=== PATIENT | female | born 1995 | race Caucasian/White ===

== ENCOUNTER → 2020-10-30 14:15 | Outpatient (CLI) | payer OTHER, SELFPAY ==
[2020-10-30 17:41] LABS: COVID19 -Nasal RAPID Negative (Negative)
== END ==
PROVIDERS: PCP Physician Assistant Medical; Visit Provider Nurse Practitioner
DX: Z01.812 Encounter for preprocedural laboratory examination (principal); Z20.822 Contact with and (suspected) exposure to COVID-19
CPT/HCPCS: 87635

== ENCOUNTER 2020-11-02 09:39 | Day surgery (SDC) | payer OTHER, SELFPAY ==
[2020-10-23 14:22] VITALS: BMI 23.1
[2020-11-02 09:58] VITALS: BMI 23.1
[2020-11-02] MEDS: LACTATED RINGERS 1,000 ML 42 ML IV (10:03)
--- NOTE | 2020-11-02 10:34 | PM.PREOP ---
Pre-operative Note COVID-19 COVID-19 status: Negative Interval Note History & Physical reviewed/Exam performed by Physician: Yes Changes to H&P: No
--- NOTE | 2020-11-02 10:36 | PM.HP.1 ---
History of Present Illness History of Present Illness Date Patient Seen: 11/02/20 Time Patient Seen: 10:36 Chief complaint: Chronic tonsillitis Narrative: 25-year-old female last seen in clinic 09/20/2020 for recurrent acute tonsillitis, chronic tonsillitis with stones, and throat pain, presents for tonsillectomy and possible adenoidectomy. No interval severe episodes but throat typically sore by the end of the day. No recent cough, cold, or fever. Elects to proceed with surgery. Patient History Medical History Anxiety Chronic tonsillitis Environmental and seasonal allergies Headache Sore throat Tonsil stone Surgical History Hx of umbilical hernia repair Family & Social History Social History: household members spouse Tobacco & Substance use: Smoking Status Never smoker alcohol intake current alcohol intake frequency 0-2 drinks per day Substance Use Type does not use Meds Home Medications and Allergies Home Medications Medication Instructions Recorded Confirmed Type topiramate 25 mg tablet (Topamax) 75 mg PO DAILY #0 12/14/16 11/02/20 History clonidine HCl 0.2 mg tablet 0.2 mg PO BEDTIME 10/23/20 11/02/20 History ethynodiol diacetate-ethinyl 1 tab PO DAILY 10/23/20 11/02/20 History estradiol 1 mg-50 mcg tablet (Kelnor) etonogestrel 68 mg subdermal 68 mg SUBDERMAL CONT 10/23/20 11/02/20 History implant (Nexplanon) methylphenidate HCl 36 mg 36 mg PO DAILY 10/23/20 11/02/20 History tablet,extended release 24 hr (Concerta) propranolol 20 mg tablet 20 mg PO DAILY 10/23/20 11/02/20 History Allergies Allergy/AdvReac Type Severity Reaction Status Date / Time latex [LATEX] Allergy Intermediate Verified 11/02/20 09:48 Review of Systems Review of Systems Narrative: Negative except as listed in HPI Exam Narrative Exam Narrative: Well-developed well-nourished female in no acute distress. Heart regular rate and rhythm without murmur, lungs clear to auscultation bilaterally Assessment & Plan Assessment & Plan narrative: Assessment: Recurrent acute tonsillitis, chronic tonsillitis, tonsil stones, and throat pain Plan: Following discussion of the material risks benefits complications and alternatives, she elected to proceed with tonsillectomy and possible adenoidectomy as outpatient.
--- NOTE | 2020-11-02 10:39 | P.OP_ITS ---
Operative Date/Time/Diagnoses Date of procedure: 11/02/20 Time of procedure: 11:23 Pre-op diagnosis: Recurrent acute tonsillitis, chronic tonsillitis, tonsil stone, throat pain Post-op diagnosis: same Procedure & Clinicians Procedure: Tonsillectomy Same procedure as scheduled: Yes Indications: 25-year-old female with the above diagnoses incompletely managed with medical therapy presents for the above procedure. Following discussion of the material risks benefits complications and alternatives, she elected to proceed. Surgeon: Yung Drew Click Yes if Unassisted: Yes Anesthesia Type: General and Local Operative Notes Findings: Intact palate, single uvula, 2+ tonsils with stones, no significant adenoids Estimated Blood Loss (mL): 20 Procedure in detail: Following identification and confirmation of consent the patient was brought to the operating room suite and placed in the supine position. General endotracheal anesthesia was administered. A head wrap, shoulder roll, and mouth gag were placed and a red rubber catheter was inserted through the nostril and out the mouth to retract the soft palate. Suction elec trocautery on a setting of 40 was used to ablate the adenoids, without injury to the eustachian tube orifices or choanae. The left tonsil was retracted medially and needle-tip electrocautery on a set ting of 12 was used to dissect the tonsil in a subcapsular plane. Hemostasis with suction electrocautery on 20 was obtained. This process was repeated on the right side with identical findings. The tonsillar fossa were superficially infiltrated bilaterally with a 1 1 mixture of 1% lidocaine 1 100,000 epinephrine and 0.25% Marcaine 1 to [id number] epinephrine. Mouth gag and rubber catheter were removed and the patient was extubated in the operating room and taken to the recovery room in stable condition without known complication. Post-operative Condition: stable Disposition: same day surgery Plan for aftercare: Push fluids, alternate Tylenol and Advil every 3 hours for baseline pain control, oxycodone for breakthrough pain. Soft diet 2 full weeks, no heavy lifting or straining 2 weeks.
--- NOTE | 2020-11-02 10:59 | SUR.OPER ---
Supine on padded OR bed, head on pillow, arms padded and tucked at sides, legs uncrossed, safety belt at thigh, tape over blanket over lower legs .
[2020-11-02] MEDS: BUPIVACAINE 0.25% W/ EPI 30 ML VIAL INJ (11:02)
[2020-11-02] MEDS: LIDOCAINE 1% W/EPI 20 ML INJ (11:02)
[2020-11-02 11:34] VITALS: BP 104/70; PULSE 59; RESP 16; TEMP 36.6; O2SAT 99
[2020-11-02 11:39] VITALS: BP 102/71; BP 104/72; PULSE 57; PULSE 62; RESP 14; RESP 16; O2SAT 97; O2SAT 98
[2020-11-02 11:45] VITALS: BP 102/70; PULSE 68; RESP 16; O2SAT 98
[2020-11-02] MEDS: fentaNYL 100 MCG/2 ML INJ IV (11:48)
[2020-11-02 12:00] VITALS: BP 108/69; BP 109/74; PULSE 45; PULSE 47; RESP 16; O2SAT 98; O2SAT 99
[2020-11-02] MEDS: OXYCODONE IR 5 MG TABLET PO (12:00)
[2020-11-02 12:18] VITALS: BP 110/72; PULSE 47; RESP 18; TEMP 36.7; O2SAT 99
== END 2020-11-02 12:36 | disposition home or self-care (01) ==
PROVIDERS: PCP Physician Assistant Medical; Referring Provider Otolaryngology; Visit Provider Otolaryngology
PROC: (CPT 42826; principal; 2020-11-02 10:30)
DX: J35.01 Chronic tonsillitis (principal); J03.91 Acute recurrent tonsillitis, unspecified; J35.8 Other chronic diseases of tonsils and adenoids
CPT/HCPCS: 42826; 81025; J1100; J2405; J2704; J3010

== ENCOUNTER → 2022-02-19 13:44 | Outpatient (CLI) | payer OTHER, SELFPAY | PROVIDERS: PCP Student in an Organized Health Care Education/Training Program; Referring Provider Otolaryngology; Visit Provider Otolaryngology | DX: R13.10 Dysphagia, unspecified (principal); K13.79 Other lesions of oral mucosa ==

== ENCOUNTER → 2022-03-21 09:50 | Outpatient (CLI) | payer OTHER, SELFPAY ==
--- NOTE | 2022-03-21 | DI.RAD.S_ITS ---
PROCEDURE: FL BARIUM SWALLOW W SPEECH INDICATIONS: Dysphagia COMPARISON: None. TECHNIQUE: Examination was conducted in conjunction with speech pathology per standard protocol. In the lateral projection, filming was performed of the patient swallowing. AP projection filming may also be performed with patient swallowing. COMPARISON: FINDINGS: Function: The oral preparatory phase appears normal. Suggestion of mild cephalad prominence of the soft palate without obvious nasal regurgitation ingested contrast material; otherwise, there is proper containment. The subsequent oral propulsive phase, pharyngeal phase, and esophageal phase of swallowing also appear normal with all proffered substances. No laryngotracheal penetration or aspiration. No pathologic vallecular pooling. Patient is able to pass a standard barium tablet without difficulty. Morphology: No cricopharyngeal bar is identified. No cervical esophageal webs. No Zenker's diverticulum. No strictures. IMPRESSION: Findings suggestive of possible velopharyngeal insufficiency; otherwise, unremarkable modified barium swallow study. Please see separate speech pathology report for further details. Dictated by: Xavier Hopson M.D. on 03/26/2022 at 8:08 Approved by: Xavier Hopson M.D. on 03/26/2022 at 8:12
--- NOTE | 2022-03-21 14:20 | ST.SWALLOW ---
Visit Care Team Role Provider Type Rosalinda Ying PA-C Primary Care Provider Physician Ui Developer Specialty: Medical Address: [address] [place] [address], [id number] Email: [email or web address] Yung Drew MD Attending Provider Physician Referring Provider Specialty: Ear, Nose, Throat Address: [address] [place] [address], [id number] Email: [email or web address] Modified Barium Swallow Study MARKET SUPERINTENDENT Modified Barium Swallow Study Start: 03/21/22 11:43 Freq: Status: Active Protocol: Document 03/21/22 11:44 LNK (Rec: 03/21/22 12:31 LNK [id number]) Modified Barium Swallow Study Total Time Visit Start Time 10:30 Visit Stop Time 11:15 Total Visit Minutes [address] Drew ENT; PCP - Dr. Rosalinda Luciano Reason for Referral dysphagia Setting Setting Outpatient Care Patient Information Identification Type Name,Date of Patient History Pt was seen for a Modified Barium Swallow Study at the referral of Dr. Drew ENT. According to the pt and records received, the pt had tonsillectomy on 11/02/20. Pt reported immediate post surgery, she difficulty swallowing foods and liquids, often regurgitating some bolus into her nasal cavity. She noted that this continues, but not as severely. Pt reports that often when she is eating foods and/or liquids will enter her nasal cavity when she swallows. She described that she will sniff/snort the food/liquid out of her nasal passage, often aspirating the food/liquid into her airway. She reported that this happens weekly, if not daily. Pt reported she has lost 50 pounds as a result. She also stated that she has needed the Heimlich maneuver 5-6 times since her surgery. Subjective Observations Pt reported on time for the MBSS on time. Called to request MARKET SUPERINTENDENT report for MBSS dated 07/16/21 to be faxed olga . MARKET SUPERINTENDENT report from [facility] received while writing this report. Patient Positioning Position View A/P Imaging Lateral View Textures Administered Trials Presented Thin Liquid via Spoon,Thin Liquid via Cup,Safety Harbor Liquid via Spoon,Safety Harbor Liquid via Cup,Pudding Thick Liquid via Spoon,Mechanical Soft Textures ,Regular Textures Oral Phase Source: MBSIMP (TM) (C) Bolus Specific Scoring Grid Lip Closure No Impairment (WNL) Tongue Control During Bolus Hold No Impairment (WNL) Bolus Prep/Mastication No Impairment (WNL) Bolus Transport/Lingual Motion No Impairment (WNL) A/P Lingual Propulsion Delay No Oral Residue No Impairment (WNL) Residue Clearing No Impairment (WNL) Nasal Regurgitation Yes Additional Oral Phase Observations Pt OME and DKS were observed to be WNL with the exception of the velum. For prolonged / ah/, there was minimal elevation of the velum. / hahaha/ noted more velar elevation indicating inconsistent velar strength/ ROM. The velopharyngeal cavity appeared to be deep. Oral phase of swallow noted good bolus control, mastication, AP transition and bolus hold to be WNL. Pharyngeal Phase Source: MBSIMP (TM) (C) Bolus Specific Scoring Grid Delayed Initiation of Pharyngeal Swallow Yes: Premature spillage of bolus head to the pyriform sinuses Number of Seconds Delayed (seconds) ~1s Soft Palate Elevation Mild Impairment Tongue Base Strength/Range of Motion Mild Impairment Residue Along the Tongue Base Yes Clearance of Residue Along Tongue Base Mild Impairment Laryngeal Elevation WFL Anterior Hyoid Movement WFL Epiglottic Range of Motion Mild Impairment Vallecular Residue Yes Clearance of Vallecular Residue Moderate Impairment Laryngeal Vestibular Closure WFL Pharyngeal Stripping Wave Mild Impairment Posterior Pharyngeal Wall Residue Yes Clearance of Posterior Pharyngeal Wall Mild Impairment Residue Upper Esophageal Sphincter Opening No Impairment (WNL) Residue in the Pyriform Sinuses Yes Clearance of Residue in the Pyriform Minimal Impairment Sinuses Esophageal Clearance Upright Position WFL Pharyngoesophageal Backflow Observed No Additional Pharyngeal Phase Observations For liquids and pudding thick liquid trials, there was velar weakness and reduced ROM observed that resulted in leakage and retroflow of contrast to the nasopharynx ( single sip and consecutive swallows). With solids (i.e., cookie), there was lingual residue post swallow that cleared with additional swallows. No obvious velar retroflow of solids was noted. Mild base of tongue strength and ROM negatively impacted epiglottis which was noted to be partially inverted with the tip bent upward against the posterior pharyngeal wall. Vallecular pooling of residue was observed across all trials . With solid trials increased pooling in the valeculla was observed and cleared with consecutive swallows. Pharyngeal pooling was noted in the valeculla, the pyriform sinuses, at the base of tongue, posterior pharyngeal wall and at nasopharynx. No laryngeal penetration or aspiration were observed. A/P View Textures Administered Trials Presented Thin Liquid via Spoon,Regular Textures,Barium Tablet A/P View Observations Esophageal Function WFL Esophageal Clearance Upright Position WFL Esophageal Observations Esophageal Function Esophageal emptying was observed to be WNL Clinical Impressions Dysphagia Type oropharyngeal Findings The pt presents with oropharyngeal dysphagia characterized by weakened velar strength and ROM, nasopharyngeal leakage. Additionally, base of tongue weakness and ROM resulting in partial epiglottic inversion and valecullar pooling across all PO trials. Additional pooling of residue was observed in the pyriform sinuses, at the base of tongue , posterior pharyngeal wall and at nasopharynx. Based on the pt's report of using sniffs/snorts to attempt to expel residue in the nasopharynx, the pt is inadvertently inspiring/ aspirating which leads to choking. If solid foods are pooled within the valeculla, these may also be aspirated resulting a potential need for the Heimlich maneuver. When pt is talking and/or laughing during meals, and she attempts to expel the nasopharyneal residue, her risk of aspiration significantly increases. Swallow therapy is recommended to increase linguapharyngeal and velar strength/ROM. Safe swallow strategies are also recommended. Rehabilitation Potential Excellent Patient Appropriate for Therapy Yes Recommendations Diet Liquids Order Thin Diet Order Regular Medication Recommendation As Tolerated,Whole in Carrier Aspiration Precautions Recommended Precautions Upright at 90 Degrees Additional Precautions mindful swallow; limit talking /laughing when eating Treatment Plan Therapy Recommendations Outpatient Speech Therapy,Base of Tongue Exercises, Compensatory Strategy Education Compensatory Strategies Recommendations Chin Tuck,Small Bites and Sips ,Alternate Liquids/Solids Short Term Goals 1) Pt will be referred for outpatient swallow therapy designed to increase strength and ROM of base of tongue, lingual and velar structures. 2) Safe swallow strategies education and implementation will be provided to the pt. 3 ) Possible consideration of pharyngeal flap if exercises ineffective Mcfp Goals pt will report no choking episodes while eating.
--- NOTE | 2022-03-21 14:22 | ST.OPPOC ---
Physical, Occupational & Speech Therapy At [facility] Visit Care Team Role Provider Type Rosalinda Ying PA-C Primary Care Provider Physician Product Safety Technician Address: [address] [place] [address], [id number] Yung Drew MD Attending Provider Physician Referring Provider Address: [address] [place] [address], [address] Speech Pathology Plan of Care Referring Provider Dr. Drew ENT; PCP - Rosalinda Palomo PA-C Patient History Pt was seen for a Modified Barium Swallow Study at the referral of SHANTEL Ramires. According to the pt and records received, the pt had tonsillectomy on 11/02/20. Pt reported immediate post surgery, she difficulty swallowing foods and liquids, often regurgitating some bolus into her nasal cavity. She noted that this continues, but not as severely. Pt reports that often when she is eating foods and/or liquids will enter her nasal cavity when she swallows. She described that she will sniff/snort the food /liquid out of her nasal passage, often aspirating the food/liquid into her airway. She reported that this happens weekly, if not daily . Pt reported she has lost 50 pounds as a result. She also stated that she has needed the Heimlich maneuver 5-6 times since her surgery. Mod Barium Swallow Oral Phase Pt OME and DKS were observed to be WNL with the Other Observations exception of the velum. For prolonged /ah/, there was minimal elevation of the velum. / hahaha/ noted more velar elevation indicating inconsistent velar strength/ROM. The velopharyngeal cavity appeared to be deep. Oral phase of swallow noted good bolus control, mastication, AP transition and bolus hold to be WNL. Mod Barium Swallow Lateral For liquids and pudding thick liquid trials, View Pharyngeal Other there was velar weakness and reduced ROM Observation observed that resulted in leakage and retroflow of contrast to the nasopharynx (single sip and consecutive swallows). With solids (i.e., cookie ), there was lingual residue post swallow that cleared with additional swallows. No obvious velar retroflow of solids was noted. Mild base of tongue strength and ROM negatively impacted epiglottis which was noted to be partially inverted with the tip bent upward against the posterior pharyngeal wall. Vallecular pooling of residue was observed across all trials. With solid trials increased pooling in the valeculla was observed and cleared with consecutive swallows. Pharyngeal pooling was noted in the valeculla, the pyriform sinuses, at the base of tongue, posterior pharyngeal wall and at nasopharynx. No laryngeal penetration or aspiration were observed. MBS Comments The pt presents with oropharyngeal dysphagia characterized by weakened velar strength and ROM , nasopharyngeal leakage. Additionally, base of tongue weakness and ROM resulting in partial epiglottic inversion and valecullar pooling across all PO trials. Additional pooling of residue was observed in the pyriform sinuses, at the base of tongue, posterior pharyngeal wall and at nasopharynx. Based on the pt's report of using sniffs/snorts to attempt to expel residue in the nasopharynx, the pt is inadvertently inspiring/aspirating which leads to choking. If solid foods are pooled within the valeculla, these may also be aspirated resulting a potential need for the Heimlich maneuver. When pt is talking and/or laughing during meals, and she attempts to expel the nasopharyneal residue, her risk of aspiration significantly increases. Swallow therapy is recommended to increase linguapharyngeal and velar strength/ROM. Safe swallow strategies are also recommended. Solid Recommendations Regular Recommended Precautions Upright at 90 Degrees Additional Precautions mindful swallow; limit talking/laughing when eating Mod Barium Swallow Recommended Outpatient Speech Therapy,Base of Tongue Treatments Exercises,Compens. Strategy Educat. Short Term Goals 1) Pt will be referred for outpatient swallow therapy designed to increase strength and ROM of base of tongue, lingual and velar structures. 2) Safe swallow strategies education and implementation will be provided to the pt. 3) Possible consideration of pharyngeal flap if exercises ineffective Comment: Electronically Signed by: MARY Solorio 03/21/22 [id number] If you are in agreement with this Plan of Care, please return a signed and dated copy. I have reviewed this Plan of Care and certify that the skilled therapy services above are required to meet the patient?s needs. Physician Signature Date Printed Name and Credentials Clinical Instructor Signature Printed Name and Credentials
== END ==
LOC: RAD 09:51
PROVIDERS: PCP Student in an Organized Health Care Education/Training Program; Referring Provider Otolaryngology; Visit Provider Otolaryngology
DX: R13.10 Dysphagia, unspecified (principal); K13.79 Other lesions of oral mucosa
CPT/HCPCS: 74230; 92611

== ENCOUNTER → 2022-10-08 06:46 | Outpatient (CLI) | payer SELFPAY ==
--- NOTE | 2022-10-08 | DI.US.S_ITS ---
PROCEDURE: US THYROID INDICATIONS: ANTERIOR/SUPERIOR/MID NECK LUMP. RECENT RESPIRATORY ILLNESS. TECHNIQUE: Real-time scanning was performed of the thyroid gland, with image documentation. COMPARISON: None. FINDINGS: Right: Thyroid lobe measures 5.0 x 1.7 x 1.8 cm, and is heterogeneous in echotexture. Left: Thyroid lobe measures 6.2 x 1.8 x 1.9 cm, and is heterogeneous in echotexture. Isthmus: 0.2 cm thick. 0.6 x 0.7 x 0.9 cm hypoechoic nodule at the inferior tip of the left thyroid may represent thyroid nodule or enlarged parathyroid gland. At the palpable area of concern at the anterior midline aspect of the superior neck, there is a 0.4 x 0.2 x 0.3 cm hypoechoic lesion in the subcutaneous tissues that most likely represents small lymph node given central vascularity and possible fatty hilum. Bilateral mildly prominent upper cervical lymph nodes are present. IMPRESSION: 1. Palpable abnormality corresponds to a small subcutaneous lymph node. Bilateral mildly prominent cervical lymph nodes are nonspecific and may be reactive. Recommend clinical follow-up. 2. Mildly enlarged and heterogeneous thyroid, which is nonspecific but can be seen in the setting of thyroiditis. 3. Hypoechoic nodule measuring 0.9 cm adjacent to the inferior left thyroid, possibly a parathyroid adenoma or a moderately suspicious thyroid nodule. Recommend correlation for hyperparathyroidism. ACR TI-RADS definitions and recommendations: TI-RADS 1 (benign): 0 points. FNA not needed. TI-RADS 2 (not suspicious): 2 points. FNA not needed. TI-RADS 3 (mildly suspicious): 3 points. * FNA if 2.5 cm or larger, follow up if 1.5 cm or larger (at 1, 3, and 5 years). TI-RADS 4 (moderately suspicious): 4-6 points. * FNA if 1.5 cm or larger, follow up if 1 cm or larger (at 1, 2, 3, and 5 years). TI-RADS 5 (highly suspicious): 7 points or more. * FNA if 1 cm or larger, follow up if 0.5 cm or larger (every year for 5 years). Approved by: Robert Palma M.D. on 10/08/2022 at 13:08
== END ==
PROVIDERS: PCP Student in an Organized Health Care Education/Training Program; Referring Provider Student in an Organized Health Care Education/Training Program; Visit Provider Student in an Organized Health Care Education/Training Program
DX: E04.9 Nontoxic goiter, unspecified (principal); R22.1 Localized swelling, mass and lump, neck
CPT/HCPCS: 76536